=== PATIENT | female | born 1945 | race Caucasian/White ===

== ENCOUNTER 2020-11-07 11:26 | Outpatient (CLI) | payer MEDICARE | END 2020-11-07 11:27 | disposition home or self-care (01) | LOC: BICRAD 11:26 | PROVIDERS: ATTEND Internal Medicine Cardiovascular Disease | DX: R00.2 Palpitations (principal); Q67.8 Other congenital deformities of chest; R91.1 Solitary pulmonary nodule | CPT/HCPCS: 71046 ==